=== PATIENT | female | born 1965 | race Caucasian/White ===

== ENCOUNTER 2018-10-28 08:38 | Emergency (ER) | payer MEDICARE, MEDICAID ==
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
== END 2018-10-28 15:05 ==
LOC: JP.ED 08:38
DX: F32.9 Major depressive disorder, single episode, unspecified (principal); F41.9 Anxiety disorder, unspecified; F43.10 Post-traumatic stress disorder, unspecified; Z88.0 Allergy status to penicillin; Z79.899 Other long term (current) drug therapy
CPT/HCPCS: 36415; 80053; 80305; 81001; 85025; 99283; G0480; 99284

== ENCOUNTER 2019-06-11 11:06 | Emergency (ER) | payer MEDICARE, MEDICAID ==
[2019-06-11] MEDS ORDERED: Sodium Chloride 0.9% 10 ML Syringe FLUSH PRN ×2 (11:38→12:11)
[2019-06-11] MEDS ORDERED: fentaNYL 100 MCG/2 ML SDV IVPUSH ONE (11:40)
--- NOTE | 2019-06-11 11:42 | EDM.PDOC ---
ED HPI GENERAL MEDICAL PROBLEM - General Chief Complaint: Abdominal Pain Stated Complaint: PAIN IN STOMACH AREA HEADACHE DIZZY Time Seen by Provider: 06/11/19 11:33 Source of Information: Reports: Patient, RN Notes Reviewed History Limitations: Reports: No Limitations - History of Present Illness INITIAL COMMENTS - FREE TEXT/NARRATIVE: 54-year-old female presents emergency department today with multiple complaints , first complaint is right-sided abdominal pain flank area has been ongoing for 24 hours awoke her from sleep yesterday has progressively gotten worse. She does have a history of gastric bypass. Other complaint is migraine type headache that feels different from typical migraines as well as dizziness. No nausea no vomiting no shortness of breath no chest pain Right Abdomen Pain Score (Numeric/FACES): 10 - Related Data Allergies Allergy/AdvReac Type Severity Reaction Status Date / Time Penicillins Allergy Rash Verified 10/28/18 09:10 Home Meds: Home Meds Gabapentin [Neurontin] 300 mg PO TID 10/28/18 [History] Methylphenidate [Ritalin] 10 mg PO TID 10/28/18 [History] OXcarbazepine [Oxcarbazepine] 150 mg PO BID 10/28/18 [History] Prazosin HCl [Prazosin] 1 - 2 mg PO BEDTIME 10/28/18 [History] QUEtiapine [SEROquel] 100 mg PO BEDTIME 10/28/18 [History] Sertraline [Zoloft] 100 mg PO BEDTIME 10/28/18 [History] Hydrocodone/Acetaminophen [Hydrocodon-Acetaminophen 5-325] 1 each PO TID PRN # 10 tablet 06/11/19 [Rx] Sulfamethoxazole/Trimethoprim [Bactrim Ds Tablet] 1 each PO BID #20 tablet 06/10 [Rx] Past Medical History HEENT History: Reports: Impaired 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: Neurological History: Reports: Brain Injury, Head Trauma Psychiatric History: Reports: Anxiety, Depression, Panic Attack, PTSD - Infectious Disease History Infectious Disease History: Reports: Chicken Pox - Past Surgical History GI Surgical History: Reports: Bariatric Procedure Female Surgical History: Reports: Hysterectomy Social & Family History - Tobacco Use Smoking Status *Q: Never Smoker - Caffeine Use Caffeine Use: Reports: Coffee, Soda, Tea - Recreational Drug Use Recreational Drug Use: No ED ROS GENERAL - Review of Systems Review Of Systems: See Below Constitutional: Denies: Fever, Chills HEENT: Reports: No Symptoms Respiratory: Reports: No Symptoms Cardiovascular: Reports: No Symptoms GI/Abdominal: Reports: Abdominal Pain, Flatus. Denies: Constipation, Diarrhea, Nausea, Vomiting : Reports: No Symptoms Musculoskeletal: Reports: No Symptoms ED EXAM, GI/ABD - Physical Exam Exam: See Below Exam Limited By: No Limitations General Appearance: Alert, Mild Distress Neck: Normal Inspection, Supple, Non-Tender, Full Range of Motion Respiratory/Chest: No Respiratory Distress, Lungs Clear, Normal Breath Sounds, No Accessory Muscle Use, Chest Non-Tender Cardiovascular: Regular Rate, Rhythm, No Murmur GI/Abdominal Exam: Soft, Tender (Tender right flank area) Back Exam: Normal Inspection, Full Range of Motion. No: CVA Tenderness (R), CVA Tenderness (L) Extremities: Normal Inspection, No Pedal Edema Course - Vital Signs Last Recorded V/S: Last Vital Signs Temp 99 F 06/11/19 11:33 Pulse 87 06/11/19 11:33 Resp 18 06/11/19 11:33 BP 148/84 H 06/11/19 11:33 Pulse Ox 98 06/11/19 11:33 - Orders/Labs/Meds Orders: Active Orders 24 hr Category Date Time Status Peripheral IV Care [RC] . DIRECTED Care 06/11/19 11:39 Active CULTURE URINE [RM] Urgent Lab 06/11/19 12:55 Received Iopamidol [Isovue-300 (61%)] Med 06/11/19 12:30 Active 108 ml IV . DIRECTED Lactated Ringers [Ringers, Lactated] 1,000 ml Med 06/11/19 11:45 Active IV ASDIRECTED Sodium Chloride 0.9% [Saline Flush] Med 06/11/19 11:38 Active 10 ml FLUSH ASDIRECTED PRN Peripheral IV Insertion Adult [OM.PC] Urgent Oth 06/11/19 11:38 Ordered Medication Orders Lactated Ringer's (Ringers, Lactated) 1,000 mls @ 999 mls/hr IV ASDIRECTED BEHZAD Last Admin: 06/11/19 11:58 Dose: 999 mls/hr Iopamidol (Isovue-300 (61%)) 108 ml IV . DIRECTED BEHZAD Sodium Chloride (Saline Flush) 10 ml FLUSH ASDIRECTED PRN PRN Reason: Keep Vein Open Labs: Laboratory Tests 06/11/19 06/11/19 06/11/19 Range/Units 11:38 11:52 11:52 WBC 4.6 (4.5-11.0) K/uL RBC 3.88 (3.30-5.50) M/uL Hgb 11.5 L (12.0-15.0) g/dL Hct 35.9 L (36.0-48.0) % MCV 93 (80-98) fL MCH 30 (27-31) pg MCHC 32 (32-36) % Plt Count 198 (150-400) K/uL Neut % (Auto) 74 H (36-66) % Lymph % (Auto) 14 L (24-44) % [place] % (Auto) 11 H (2-6) % Eos % (Auto) 1 L (2-4) % Baso % (Auto) 0 (0-1) % Sodium 138 L (140-148) mmol/L Potassium 4.4 (3.6-5.2) mmol/L Chloride 103 (100-108) mmol/L Carbon Dioxide 25 (21-32) mmol/L Anion Gap 14.4 H (5.0-14.0) mmol/L BUN 14 (7-18) mg/dL Creatinine 0.8 (0.6-1.0) mg/dL Est Cr Clr Drug Dosing 63.58 mL/min Estimated GFR (MDRD) > 60 (>60) Glucose 86 (74-106) mg/dL Lactic Acid (0.4-2.0) mmol/L Calcium 8.9 (8.5-10.1) mg/dL Total Bilirubin 0.6 (0.2-1.0) mg/dL AST 20 (15-37) U/L ALT 18 (12-78) U/L Alkaline Phosphatase 103 (46-116) U/L Total Protein 6.6 (6.4-8.2) g/dL Albumin 3.3 L (3.4-5.0) g/dL Globulin 3.3 (2.3-3.5) g/dL Albumin/Globulin Ratio 1.0 L (1.2-2.2) Lipase 94 (73-393) U/L Urine Color Yellow (YELLOW) Urine Appearance Slightly cloudy A (CLEAR) Urine pH 7.5 (5.0-8.0) Ur Specific [place] 1.020 (1.008-1.030) Urine Protein 100 H (NEGATIVE) mg/dL Urine Glucose (UA) Negative (NEGATIVE) mg/dL Urine Ketones Negative (NEGATIVE) mg/dL Urine Occult Blood Small H (NEGATIVE) Urine Nitrite Negative (NEGATIVE) Urine Bilirubin Negative (NEGATIVE) Urine Urobilinogen 0.2 (0.2-1.0) EU/dL Ur Leukocyte Esterase Moderate H (NEGATIVE) Urine RBC Not seen (0-5) Urine WBC 20-30 H (0-5) Ur Epithelial Cells Not seen Amorphous Sediment Not seen Urine Bacteria Moderate Urine Mucus Not seen 06/11/19 Range/Units 11:52 WBC (4.5-11.0) K/uL RBC (3.30-5.50) M/uL Hgb (12.0-15.0) g/dL Hct (36.0-48.0) % MCV (80-98) fL MCH (27-31) pg MCHC (32-36) % Plt Count (150-400) K/uL Neut % (Auto) (36-66) % Lymph % (Auto) (24-44) % [place] % (Auto) (2-6) % Eos % (Auto) (2-4) % Baso % (Auto) (0-1) % Sodium (140-148) mmol/L Potassium (3.6-5.2) mmol/L Chloride (100-108) mmol/L Carbon Dioxide (21-32) mmol/L Anion Gap (5.0-14.0) mmol/L BUN (7-18) mg/dL Creatinine (0.6-1.0) mg/dL Est Cr Clr Drug Dosing mL/min Estimated GFR (MDRD) (>60) Glucose (74-106) mg/dL Lactic Acid 2.0 (0.4-2.0) mmol/L Calcium (8.5-10.1) mg/dL Total Bilirubin (0.2-1.0) mg/dL AST (15-37) U/L ALT (12-78) U/L Alkaline Phosphatase (46-116) U/L Total Protein (6.4-8.2) g/dL Albumin (3.4-5.0) g/dL Globulin (2.3-3.5) g/dL Albumin/Globulin Ratio (1.2-2.2) Lipase (73-393) U/L Urine Color (YELLOW) Urine Appearance (CLEAR) Urine pH (5.0-8.0) Ur Specific [place] (1.008-1.030) Urine Protein (NEGATIVE) mg/dL Urine Glucose (UA) (NEGATIVE) mg/dL Urine Ketones (NEGATIVE) mg/dL Urine Occult Blood (NEGATIVE) Urine Nitrite (NEGATIVE) Urine Bilirubin (NEGATIVE) Urine Urobilinogen (0.2-1.0) EU/dL Ur Leukocyte Esterase (NEGATIVE) Urine RBC (0-5) Urine WBC (0-5) Ur Epithelial Cells Amorphous Sediment Urine Bacteria Urine Mucus Meds: Medications Generic Name Dose Route Start Last Admin Trade Name Freq PRN Reason Stop Dose Admin Lactated Ringer's 1,000 mls @ 999 mls/hr 06/11/19 11:45 06/11/19 11:58 Ringers, Lactated IV 999 mls/hr ASDIRECTED BEHZAD Administration Iopamidol 108 ml 06/11/19 12:30 Isovue-300 (61%) IV . DIRECTED BEHZAD Sodium Chloride 10 ml 06/11/19 11:38 Saline Flush FLUSH ASDIRECTED PRN Keep Vein Open Discontinued Medications Generic Name Dose Route Start Last Admin Trade Name Freq PRN Reason Stop Dose Admin Fentanyl 50 mcg 06/11/19 11:40 06/11/19 11:56 Sublimaze IVPUSH 06/11/19 11:41 50 mcg ONETIME ONE Administration Sodium Chloride 73 mls @ 3 mls/sec 06/11/19 12:15 Normal Saline IV 06/11/19 12:16 ASDIRECTED BEHZAD Sodium Chloride 73 mls @ 3 mls/sec 06/11/19 12:22 06/11/19 12:41 Normal Saline IV 06/11/19 12:23 3 mls/sec ONETIME ONE Administration Ceftriaxone Sodium 1 gm/ 50 mls @ 100 mls/hr 06/11/19 14:00 06/11/19 14:31 Sodium Chloride IV 06/11/19 14:29 100 mls/hr ONETIME ONE Administration Iopamidol 108 ml 06/11/19 12:11 06/11/19 12:43 Isovue-300 (61%) IV 06/11/19 12:12 108 ml ONETIME ONE Administration Ketorolac Tromethamine 30 mg 06/11/19 13:05 06/11/19 13:13 Toradol IVPUSH 06/11/19 13:06 30 mg ONETIME ONE Administration Sodium Chloride 10 ml 06/11/19 12:11 06/11/19 12:41 Saline Flush FLUSH 06/11/19 12:12 10 ml ONETIME PRN Administration per radiology protocol Sodium Chloride 10 ml 06/11/19 12:22 Normal Saline FLUSH 06/11/19 12:23 ONETIME ONE Departure - Departure Time of Disposition: 13:50 Disposition: Home, Self-Care 01 Condition: Fair Clinical Impression: Pyelonephritis - Discharge Information Prescriptions: Hydrocodone/Acetaminophen [Hydrocodon-Acetaminophen 5-325] 1 each PO TID PRN # 10 tablet PRN Reason: Pain Sulfamethoxazole/Trimethoprim [Bactrim Ds Tablet] 1 each PO BID #20 tablet Instructions: Pyelonephritis, Adult, [id number] Referrals: PCP,None [Primary Care Provider] - Forms: ED Department Discharge Additional Instructions: Take full course of antibiotics, use hydrocodone as needed for pain control, please follow-up with your primary care in the next 3 to 5 days for reevaluation at which time your urine culture should be done your antibiotics and pain medication have been faxed to [facility] Sepsis Event Note - Evaluation Sepsis Screening Result: No Definite Risk - Focused Exam Vital Signs: Vital Signs Temp Pulse Resp BP Pulse Ox 06/11/19 11:33 99 F 87 18 148/84 H 98 06/11/19 11:26 99 F 87 18 148/84 H 98 Date Exam was Performed: 06/11/19 Time Exam was Performed: 14:52 - My Orders Last 24 Hours: My Active Orders 06/11/19 11:38 Sodium Chloride 0.9% [Saline Flush] 10 ml FLUSH ASDIRECTED PRN Peripheral IV Insertion Adult [OM.PC] Urgent 06/11/19 11:39 Peripheral IV Care [RC] . DIRECTED 06/11/19 11:45 Lactated Ringers [Ringers, Lactated] 1,000 ml IV ASDIRECTED 06/11/19 12:30 Iopamidol [Isovue-300 (61%)] 108 ml IV . DIRECTED 06/11/19 12:55 CULTURE URINE [RM] Urgent - Assessment/Plan Last 24 Hours: My Active Orders 06/11/19 11:38 Sodium Chloride 0.9% [Saline Flush] 10 ml FLUSH ASDIRECTED PRN Peripheral IV Insertion Adult [OM.PC] Urgent 06/11/19 11:39 Peripheral IV Care [RC] . DIRECTED 06/11/19 11:45 Lactated Ringers [Ringers, Lactated] 1,000 ml IV ASDIRECTED 06/11/19 12:30 Iopamidol [Isovue-300 (61%)] 108 ml IV . DIRECTED 06/11/19 12:55 CULTURE URINE [RM] Urgent Plan: Assessment Acuity = acute Site and laterality = pyelonephritis right side Etiology = probable bacterial cause Manifestations = flank and back pain Location of injury = Home Lab values = CBC CMP unremarkable urinalysis reveals moderate leukocyte esterase 20-30 WBCs consistent with pyuria cultures pending CT scan describes a pyelonephritis on the right side, Plan I did review lab work CT scan results with her she does have an allergy to penicillin we are going to try Rocephin 1 g now and then will start her on Bactrim DS 1 tab p.o. twice daily x10 days [facility] also medications of hydrocodone 5/325 1 tab p.o. 3 times daily PRN total #10 for pain control she will follow-up with primary care in 3 to 5 days at which time the culture should be available. This note was dictated using [employer] voice recognition software please call with any questions on syntax or grammar.
[2019-06-11] MEDS ORDERED: Lactated Ringers 1,000 ML IV SCH (11:45)
[2019-06-11] MEDS ORDERED: Iopamidol 612 MG/ML 500 ML Multipack Bottle IV ONE (12:11)
[2019-06-11] MEDS ORDERED: Sodium Chloride 0.9% 10 ML SDV FLUSH ONE (12:22)
[2019-06-11] MEDS ORDERED: Iopamidol 612 MG/ML 150 ML Bottle IV SCH (12:30)
[2019-06-11] MEDS ORDERED: Ketorolac 30 MG/ML SDV IVPUSH ONE (13:05)
--- NOTE | 2019-06-11 13:30 | CT ---
Abdomen Pelvis w Cont CLINICAL HISTORY: Right-sided flank pain COMPARISON: None. TECHNIQUE: Transverse scans were obtained from the base of the lungs to the pubic symphysis following oral contrast and IV infusion of contrast.Auto dosage reduction and iterative reconstructiontechniques employed. FINDINGS: The lung bases are clear. The liver appears mildly enlarged. There is no mass. There is some mild the intrahepatic biliary dilatation. This is likely related to previous cholecystectomy. The spleen is borderline enlarged. The pancreas shows no mass or inflammatory change. The adrenal glands appear normal bilaterally . The right kidney is mildly hydronephrotic. There is some enhancement of the renal pelvis. This is seen to a lesser degree on the left. The ureters have a normal course and contour. The aorta has a normal caliber. There is no suspicious retroperitoneal adenopathy. Small bowel configuration is nonacute. There is no evidence of appendicitis. There is some mild diverticulosis without evidence of diverticulitis There is mild generalized bladder wall thickening without focal mass. IMPRESSION: Pelvocaliectasis right greater than left. There is some enhancement of the renal pelvis and proximal ureter. This may represent the pyelonephritis. Mild hepatosplenomegaly Previous bariatric surgery
[2019-06-11] MEDS ORDERED: cefTRIAXone 500 MG Vial IVPUSH ONE (13:42)
[2019-06-11] MEDS ORDERED: cefTRIAXone 1 GM in Sodium Chloride 0.9% 50 ML IV ONE (14:00)
== END 2019-06-11 15:35 | disposition home or self-care (01) ==
LOC: JP.ED 11:06
DX: N12 Tubulo-interstitial nephritis, not specified as acute or chronic (principal); F41.0 Panic disorder [episodic paroxysmal anxiety]; F32.9 Major depressive disorder, single episode, unspecified; F43.10 Post-traumatic stress disorder, unspecified; Z79.899 Other long term (current) drug therapy; Z88.0 Allergy status to penicillin
CPT/HCPCS: 36415; 74177; 80053; 81001; 83605; 83690; 85025; 87086; 87088; 87186; 96361; 96365; 96375; 99283; 99284; J0696; J1885; J3010; J7050; J7120; Q9967

== ENCOUNTER 2019-06-16 14:26 | Emergency (ER) | payer MEDICARE, MEDICAID | END 2019-06-16 15:00 | disposition left against medical advice (07) | LOC: JP.ED 14:26 | DX: Z53.21 Procedure and treatment not carried out due to patient leaving prior to being seen by health care provider (principal) ==